=== PATIENT | male | born 1935 | race Caucasian/White ===

== ENCOUNTER 2017-04-02 14:41 | Emergency (ER) | payer OTHER ==
[~2017-04-02] VITALS: Ht 170.2 cm; Wt 63.0 kg
[~2017-04-02 14:41] MED LIST: ACIFEX; ALPR-138 PO; ALPR0.5T99 PO; CHOL4POW3 PO
[2017-04-02 14:58] VITALS: BP 160/83; PULSE 92; RESP 16; O2SAT 95
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
[2017-04-02 15:46] LABS: BASOPHIL # 0.1 TH/MM3 (0-0.2); BASOPHIL % 0.9 % (0.0-2.0); EOSINOPHIL # 0.2 TH/MM3 (0-0.4); EOSINOPHIL % 2.1 % (0.0-4.0); HEMO FLAGS DIFF FINAL; LYMPH % 19.5 % (9.0-44.0); LYMPHOCYTE # 2.2 TH/MM3 (1.0-4.8); MEAN CELL VOLUME 90.6 FL (80.0-100.0); MEAN CORPUSCULAR HGB CONC 34.2 % (32.0-36.0); MONO % 7.1 % (0.0-8.0); NEUT % 70.4 % (16.0-70.0); PLATELET COUNT 277 TH/MM3 (150-450); RED BLOOD COUNT 4.75 MIL/MM3 (4.50-5.90); RED CELL DISTRIBUTION WIDTH 14.6 % (11.6-17.2); WHITE BLOOD COUNT 11.3 TH/MM3 (4.0-11.0)
[2017-04-02 16:13] LABS: ALT (GPT) 21 U/L (12-78); ANION GAP 7 MEQ/L (5-15); AST (GOT) 17 U/L (15-37); BICARBONATE 25.6 MEQ/L (21.0-32.0); BLOOD UREA NITROGEN 10 MG/DL (7-18); CHLORIDE 109 MEQ/L (98-107); GLOMERULAR FILTRATION RATE 73 ML/MIN (>89); POTASSIUM 4.1 MEQ/L (3.5-5.1); SODIUM (NA) 142 MEQ/L (136-145)
[2017-04-02 16:16] LABS: ACETAMINOPHEN LESS THAN 2.0 MCG/ML (10.0-30.0); ALKALINE PHOSPHATASE 94 U/L (45-117); TOTAL BILIRUBIN ADULT 0.3 MG/DL (0.2-1.0)
[2017-04-02 19:10] VITALS: BP 148/64; PULSE 80; RESP 18; O2SAT 99
[2017-04-02] MEDS ORDERED: NICOTINE 14 MG/24 HR PATCH T-DERMAL ONE (19:15)
[2017-04-02 19:18] LABS: BLOOD, URINE NEG (NEG); COMMENT (UR) CULT NOT INDICATED; CULTURE IF INDICATED CULT NOT INDICATED; GLUCOSE,URINE NEG (NEG); KETONE, URINE NEG (NEG); MUCUS URINE FEW /lpf (OCC); NITRITE,URINE NEG (NEG); URINE COLOR YELLOW (YELLW/STRAW)
[2017-04-02] MEDS ORDERED: TRAZ50TA12 PO (19:23)
[2017-04-02] MEDS ORDERED: PARO37.5CR PO (19:23)
[2017-04-02] MEDS ORDERED: ALPR0.25 PO (19:23)
[2017-04-02] MEDS ORDERED: ATOR40TA16 PO (19:23)
[2017-04-02] MEDS ORDERED: FINA5TAB2 PO (19:23)
[2017-04-02] MEDS ORDERED: OLAN5TAB PO (19:23)
[2017-04-02] MEDS ORDERED: PROT40TA PO (19:23)
[2017-04-02 19:54] LABS: AMPHETAMINE, URINE NEG (NEG); BARBITURATES, URINE NEG (NEG); COCAINE, URINE NEG (NEG)
[2017-04-02] MEDS ORDERED: ALPRAZolam 0.25 MG TAB PO ONE (20:00)
[2017-04-03 06:08] VITALS: BP 112/68; PULSE 98; RESP 18; O2SAT 90
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
== END 2017-04-03 11:38 | disposition home or self-care (01) ==
LOC: NEPE 14:41 → NEPJ 04-03 11:38
DX: F03.90 Unspecified dementia, unspecified severity, without behavioral disturbance, psychotic disturbance, mood disturbance, and anxiety (principal)
CPT/HCPCS: 80053; 80307; 81001; 85025; 99284